=== PATIENT | female | born 1965 | race Caucasian/White ===

== ENCOUNTER 2018-04-14 13:47 | Inpatient (IN) | payer MEDICARE, MEDICAID ==
[~2018-04-14] VITALS: Ht 170.2 cm; Wt 59.3 kg
[2018-04-14] MEDS ORDERED: SODIUM CHLORIDE 0.9% 1,000ML IVBOLUS ONE ×2 (14:30→15:30)
[2018-04-14] MEDS ORDERED: SODIUM CHLORIDE FLUSH 10ML SYR IVF ONE (14:30)
[2018-04-14] MEDS ORDERED: KETOROLAC 30 MG/1 ML IVPush ONE (14:30)
[2018-04-14] MEDS ORDERED: ONDANSETRON ODT 4 MG PO ONE (14:30)
[2018-04-14 14:49] LABS: CULTURE INDICATED? YES; MICROSCOPIC INDICATED
[2018-04-14 14:51] LABS: BASOPHILS # (AUTO) 0.07 x10^3/uL (0-0.1); BASOPHILS % (AUTO) 1 % (0-1); EOSINOPHILS # (AUTO) 0.07 x10^3/uL (0-0.4); EOSINOPHILS % (AUTO) 1 % (1-7); LYMPHOCYTES % (AUTO) 11 % (22-44); MD NO; MEAN CORPUSCULAR HEMOGLOBIN 31.2 pg (27.0-34.8); MEAN CORPUSCULAR VOLUME 91.8 fL (80-100); MEAN PLATELET VOLUME 7.7 fL (7.4-10.4); MONOCYTES # (AUTO) 1.12 x10^3/uL (0.2-0.8); MONOCYTES % (AUTO) 9 % (2-9); NEUTROPHILS # (AUTO) 10.57 x10^3/uL (1.8-6.8); NEUTROPHILS % (AUTO) 80 % (42-75); PLATELET COUNT 297 x10^3/uL (130-400); RED BLOOD COUNT 4.64 x10^6/uL (3.82-5.3); RED CELL DISTRIBUTION WIDTH 12.7 % (9.6-15.2)
[2018-04-14 14:52] LABS: RAPID INFLUENZA A Negative (Negative); RAPID INFLUENZA B Negative (Negative)
[2018-04-14 15:04] LABS: ALBUMIN 3.2 g/dL (3.4-5.0); ANION GAP 9 mmol/L (5-15); CALCIUM 8.8 mg/dL (8.5-10.1); CHLORIDE 106 mmol/L (98-107); CREATININE 0.77 mg/dL (0.55-1.02)
[2018-04-14] MEDS ORDERED: ONDANSETRON ODT 4 MG ONE (15:11)
[2018-04-14] MEDS ORDERED: KETOROLAC 30 MG/1 ML ONE (15:11)
[2018-04-14] MEDS ORDERED: CEFTRIAXONE PMX 1GM/50ML 50 ML IVPB ONE (15:30)
[2018-04-14] MEDS ORDERED: CEFTRIAXONE PMX 1GM/50ML 50 ML ONE (15:40)
[2018-04-14] MEDS ORDERED: ONDANSETRON 2MG/ML, 2ML IVPush PRN (17:30)
[2018-04-14] MEDS ORDERED: ACETAMINOPHEN 325 MG TABLET PO PRN (17:30)
[2018-04-14] MEDS: CEFTRIAXONE PMX 2GM/50ML 50 ML IV SCH (17:30)
[2018-04-14 17:38] LABS: FREE T4 (FREE THYROXINE) 1.27 ng/dL (0.76-1.46); THYROID STIMULATING HORMONE 3.55 mIU/L (0.358-3.740)
[2018-04-14 17:39] VITALS: BP 115/76
[2018-04-14] MEDS: KETOROLAC 30 MG/1 ML IVPush SCH ×2 (18:14→22:45)
[2018-04-14] MEDS: SODIUM CHLORIDE 0.9% 1,000 ML IV SCH (18:15)
[2018-04-14] MEDS: NICOTINE 14MG/24 HR PATCH.TD24 TD SCH (18:28)
[2018-04-14] MEDS: ENOXAPARIN 40 MG/0.4 ML SQ SCH (18:28)
[2018-04-14] MEDS ORDERED: IBUPROFEN 200 MG TABLET PO PRN (18:30)
[2018-04-14 19:53] VITALS: BP 111/72
[2018-04-14] MEDS: HYDROcodone/APAP 5/325 TABLET PO PRN (22:36)
[2018-04-14] MEDS: TEMAZEPAM 15 MG CAPSULE PO PRN (22:37)
[2018-04-15] MEDS: SODIUM CHLORIDE 0.9% 1,000 ML IV SCH ×3 (01:01→18:32)
[2018-04-15 04:01] VITALS: BP 114/73
[2018-04-15 05:21] LABS: BASOPHILS # (AUTO) 0.05 x10^3/uL (0-0.1); BASOPHILS % (AUTO) 1 % (0-1); EOSINOPHILS # (AUTO) 0.21 x10^3/uL (0-0.4); EOSINOPHILS % (AUTO) 3 % (1-7); LYMPHOCYTES # (AUTO) 2.64 x10^3/uL (1-3.4); LYMPHOCYTES % (AUTO) 34 % (22-44); MD NO; MEAN CORPUSCULAR HEMOGLOBIN 31.1 pg (27.0-34.8); MEAN CORPUSCULAR HGB CONC 33.4 g/dL (32.4-35.8); MEAN CORPUSCULAR VOLUME 93.3 fL (80-100); MEAN PLATELET VOLUME 8.1 fL (7.4-10.4); MONOCYTES % (AUTO) 13 % (2-9); NEUTROPHILS # (AUTO) 3.93 x10^3/uL (1.8-6.8); NEUTROPHILS % (AUTO) 50 % (42-75); PLATELET COUNT 266 x10^3/uL (130-400); RED BLOOD COUNT 4.06 x10^6/uL (3.82-5.3); RED CELL DISTRIBUTION WIDTH 12.9 % (9.6-15.2)
[2018-04-15 05:25] LABS: ALBUMIN 2.4 g/dL (3.4-5.0); ANION GAP 3 mmol/L (5-15); CALCIUM 7.9 mg/dL (8.5-10.1); CHLORIDE 112 mmol/L (98-107)
[2018-04-15 05:28] LABS: ALANINE AMINOTRANSFERASE 20 U/L (12-78); ALKALINE PHOSPHATASE 84 U/L (45-117); BILIRUBIN,TOTAL 0.4 mg/dL (0.2-1.0); CREATININE 0.75 mg/dL (0.55-1.02); TOTAL PROTEIN 5.7 g/dL (6.4-8.2)
[2018-04-15] MEDS: KETOROLAC 30 MG/1 ML IVPush SCH ×3 (05:28→18:31)
[2018-04-15 06:32] VITALS: BP 125/81
[2018-04-15] MEDS: PANTOPROZOLE 40MG TABLET PO SCH (10:28)
[2018-04-15] MEDS: HYDROcodone/APAP 5/325 TABLET PO PRN ×3 (10:31→20:14)
[2018-04-15] MEDS: NICOTINE 14MG/24 HR PATCH.TD24 TD SCH (11:44)
[2018-04-15 14:30] VITALS: BP 147/92
[2018-04-15] MEDS: ENOXAPARIN 40 MG/0.4 ML SQ SCH (18:31)
[2018-04-15] MEDS: CEFTRIAXONE PMX 2GM/50ML 50 ML IV SCH (18:31)
[2018-04-15] MEDS: TEMAZEPAM 15 MG CAPSULE PO PRN (20:14)
[2018-04-15] MEDS ORDERED: ONDANSETRON ODT 4 MG PO PRN (20:30)
[2018-04-15 21:05] VITALS: BP 152/89
[2018-04-16 02:12] VITALS: BP 151/84
[2018-04-16] MEDS: SODIUM CHLORIDE 0.9% 1,000 ML IV SCH ×3 (02:23→17:00)
[2018-04-16] MEDS ORDERED: KETOROLAC 30 MG/1 ML IVPush PRN (05:30)
[2018-04-16 08:10] VITALS: BP 159/89
[2018-04-16] MEDS: PANTOPROZOLE 40MG TABLET PO SCH (09:05)
[2018-04-16] MEDS: NICOTINE 14MG/24 HR PATCH.TD24 TD SCH (12:53)
[2018-04-16 14:30] VITALS: BP 167/96
[2018-04-16] MEDS: ENOXAPARIN 40 MG/0.4 ML SQ SCH (16:58)
[2018-04-16] MEDS: CEFTRIAXONE PMX 2GM/50ML 50 ML IV SCH (17:00)
[2018-04-16 20:22] VITALS: BP 169/102
[2018-04-16] MEDS: hydrALAzine 20 MG/ML, 1ML IVPush PRN (22:07)
[2018-04-17 01:43] VITALS: BP 179/102
[2018-04-17] MEDS: hydrALAzine 20 MG/ML, 1ML IVPush PRN (02:00)
[2018-04-17 02:16] VITALS: BP 149/76
[2018-04-17] MEDS: SODIUM CHLORIDE 0.9% 1,000 ML IV SCH ×2 (02:17→08:24)
[2018-04-17 07:26] VITALS: BP 163/99
[2018-04-17] MEDS: PANTOPROZOLE 40MG TABLET PO SCH (08:24)
== END 2018-04-17 12:11 | disposition left against medical advice (07) | DRG 871 ==
LOC: ED 15:55 → EDIP 15:56 → ED 16:32 → 3NE 17:35
PROVIDERS: ADMIT Internal Medicine; ATTEND Internal Medicine
DX: A41.9 Sepsis, unspecified organism (principal); E43 Unspecified severe protein-calorie malnutrition; N10 Acute pyelonephritis; J02.0 Streptococcal pharyngitis; B95.1 Streptococcus, group B, as the cause of diseases classified elsewhere; J44.9 Chronic obstructive pulmonary disease, unspecified; Z80.1 Family history of malignant neoplasm of trachea, bronchus and lung; Z90.710 Acquired absence of both cervix and uterus; Z88.8 Allergy status to other drugs, medicaments and biological substances; Z68.20 Body mass index [BMI] 20.0-20.9, adult
CPT/HCPCS: 36415; 71045; 80048; 80053; 81001; 82040; 83605; 84145; 84439; 84443; 85025; 87040; 87077; 87081; 87086; 87147; 87186; 87400; 87880; 96361; 96365; 96375; J0696; J1650; J1885; Q0162; J0360; J7030

== ENCOUNTER 2018-05-29 15:35 | Emergency (ER) | payer MEDICARE, MEDICAID ==
[~2018-05-29] VITALS: Ht 162.6 cm; Wt 58.8 kg
[2018-05-29 15:36] VITALS: BP 160/105
[2018-05-29 16:23] LABS: BASOPHILS # (AUTO) 0.09 x10^3/uL (0-0.1); BASOPHILS % (AUTO) 1 % (0-1); EOSINOPHILS # (AUTO) 0.19 x10^3/uL (0-0.4); EOSINOPHILS % (AUTO) 3 % (1-7); LYMPHOCYTES # (AUTO) 2.33 x10^3/uL (1-3.4); LYMPHOCYTES % (AUTO) 34 % (22-44); MD NO; MEAN CORPUSCULAR HEMOGLOBIN 30.8 pg (27.0-34.8); MEAN CORPUSCULAR HGB CONC 33.3 g/dL (32.4-35.8); MEAN CORPUSCULAR VOLUME 92.5 fL (80-100); MEAN PLATELET VOLUME 7.8 fL (7.4-10.4); MONOCYTES # (AUTO) 0.43 x10^3/uL (0.2-0.8); MONOCYTES % (AUTO) 6 % (2-9); NEUTROPHILS # (AUTO) 3.82 x10^3/uL (1.8-6.8); NEUTROPHILS % (AUTO) 56 % (42-75); PLATELET COUNT 334 x10^3/uL (130-400); RED BLOOD COUNT 4.33 x10^6/uL (3.82-5.3); RED CELL DISTRIBUTION WIDTH 13.8 % (9.6-15.2)
[2018-05-29 16:32] LABS: ALBUMIN 3.3 g/dL (3.4-5.0); ANION GAP 6 mmol/L (5-15); CALCIUM 8.5 mg/dL (8.5-10.1); CHLORIDE 112 mmol/L (98-107); CREATININE 0.81 mg/dL (0.55-1.02)
[2018-05-29 16:34] LABS: MICROSCOPIC INDICATED
[2018-05-29 16:58] LABS: CULTURE INDICATED? YES
== END 2018-05-29 17:16 | disposition home or self-care (01) ==
LOC: ED 15:56
DX: M54.5 Low back pain (principal); R73.9 Hyperglycemia, unspecified; R53.83 Other fatigue; I10 Essential (primary) hypertension; J44.9 Chronic obstructive pulmonary disease, unspecified; F17.210 Nicotine dependence, cigarettes, uncomplicated; Z90.710 Acquired absence of both cervix and uterus
CPT/HCPCS: 36415; 80048; 81001; 82040; 85025; 87086; 99284